=== PATIENT | female | born 1995 | race Asian ===

== ENCOUNTER 2024-12-10 19:58 | Emergency (ER) | payer OTHER ==
--- OUTSIDE RECORDS SUMMARY | 2024-12-10 20:03 | XMS REPORT | Continuity of Care Document ---
Author Name Unknown Address [address] [facility] [address] [place] [address] [facility] Address [address] [facility] [address] [place] [address] Care Team Providers Care Builder Beam Name Role Phone FIDENCIO HUNG Primary Care Physician ИВАН Alfaro Attending Clinician Unavailable FIDENCIO HUNG Attending Clinician Unavailable MARZENA QUIROZ Attending Clinician Unavailable Fidencio Hung NP Attending Clinician [phone], [facility] Attending Clinician Unavailable JOCELYNN NELSON Attending Clinician UnavailJOCELYNN Holland Attending Clinician UnavailJUAN Carranza Attending Clinician Unavailable Juan Dias Attending Clinician [phone] Unknown, Attending Attending Clinician Unavailab villalobos Doctor Unawinstonigned, [place] Attending Clinician Иван Miranda Attending Clinician [phone], [facility] Attending Clinician Unavailable LISSY CYR Attending Clinician LISSY Keita Attending Clinician ИВАН Gamble Admitting Clinician LISSY Saavedra Admitting Clinician Kimber moss Payers Payer Name Policy Type Policy Number Effective Date Expirati on Date Source [facility] [id number] 2024 00:00:00 [facility] [id number] 2023 00:00:00 Problems Condition Name Condition Details Condition Category Status Onset Date Resolution Date Last Treatment Date Treating Clinician Comments Source Irregular menstrual cycle Irregular menstrual cycle Disease Active 11-14 00:00: 00 [facility] Encounter for surveillan ce of contracept bertha pills Encounter for surveillan ce of contracept bertha pills Disease Active 11-14 00:00: 00 [facility] Allergies, Adverse Reactions, Alerts Allergy Name Allergy Type Status Severity Reaction(s) Onset Date Inactive Date Treating Clinician Comments Source NO KNOWN ALLERGIE S Drug Class Active [facility] Social History Social Habit Start Date Stop Date Quantity Comments Source Sexual orientation [facility] History of Social function 2024-09-15 00:00:00 2024-09-15 00:00:00 [facility] Alcoholic beverage intake 2024-09-15 00:00:00 2024-09-15 00:00:00 .57 /d [facility] Tobacco use and exposure 2024-04-11 00:00:00 2024-04-11 00:00:00 Smokeless tobacco non-user [facility] Cigarettes smoked current (pack per day) - Reported 2024-04-11 00:00:00 2024-04-11 00:00:00 [facility] Cigarette pack-years 2024-04-11 00:00:00 2024-04-11 00:00:00 [facility] Alcohol intake 2023-11-29 00:00:00 2023-11-29 00:00:00 .57 /d [facility] Alcohol Comment 2023-08-06 00:00:00 2023-08-06 00:00:00 occasional [facility] History of tobacco use 2021-07-29 00:00:00 2021-07-30 00:00:00 Cigarette Smoker [facility] Sex assigned at 1995 00:00:00 1995 00:00:00 [facility] Smoking Status Start Date Stop Date Source Ex-smoker 2024-04-11 00:00:00 2024-04-11 00:00:00 [facility] Medications Ordered Medication Name Filled Medication Name Start Date Stop Date Current Medication? Ordering Clinician Indication Dosage Frequency Signature (SIG) Comments Components Source acyclovir 400 mg tablet 2-17 00:00: 00 Yes [id number] 400mg Take 1 tablet by mouth in the morning and 1 tablet at noon and 1 tablet in the evening. [facility] valACYclovi r (VALTREX) 1 gram tablet 9-13 00:00: 00 04-19 04:59 :00 No [id number] 1g Take 1 tablet by mouth in the morning and 1 tablet in the evening. Do all this for 7 days. [facility] omeprazole 40 mg capsule - 00:00: 00 Yes [id number] 40mg Take 1 capsule by mouth in the morning. [facility] norethindro ne-e.estrad ioL-iron (LOESTRIN FE 1/20) 1 mg-20 mcg (21)/75 mg (7) tablet 11-04 00:00: 00 Yes [id number] 1{tbl} Take 1 tablet by mouth in the morning. [facility] mupirocin 2 % ointment 10-28 00:00: 00 11-28 00:00 :00 No [id number] Apply to area(s) 3 (three) times daily. [facility] valACYclovi r (VALTREX) 1 gram tablet - 00:00: 00 11-05 04:59 :00 No [id number] 1g Take 1 tablet by mouth in the morning and 1 tablet at noon and 1 tablet in the evening. Do all this for 7 days. [facility] norethindro ne-e.estrad ioL-iron (LOESTRIN FE 1/20) 1 mg-20 mcg (21)/75 mg (7) tablet -18 00:00: 00 11-04 00:00 :00 No [id number] 1{tbl} Take 1 tablet by mouth in the morning. [facility] polyethylen e glycol 3350 (MIRALAX) 17 gram powder -08 00:00: 00 11-28 00:00 :00 No [id number] 1{packe t} Take 1 Packet by mouth as needed for Constipati on (daily as needed for constipati on). [facility] Vital Signs Vital Name Observation Time Observation Value Comments Leon vaughn Systolic blood pressure 2024-09-15 19:10:00 118 mm[Hg] [facility] Diastolic blood pressure 2024-09-15 19:10:00 73 mm[Hg] [facility] Heart rate 2024-09-15 19:10:00 93 /min Unive [facility] Body temperature 2024-09-15 19:10:00 36.83 Joaquina [facility] Body height 2024-09-15 19:10:00 162.6 cm [facility] Body weight 2024-09-15 19:10:00 52.39 kg [facility] BMI 2024-09-15 19:10:00 19.83 kg/m2 [facility] Oxygen saturation in Arterial blood by Pulse oximetry 2024-09-15 19:10:00 100 /min [facility] Systolic blood pressure 2024-04-11 18:03:00 106 mm[Hg] [facility] Diastolic blood pressure 2024-04-11 18:03:00 70 mm[Hg] [facility] Heart rate 2024-04-11 18:03:00 62 /min Unive [facility] Body height 2024-04-11 18:03:00 167.6 cm [facility] Body weight 2024-04-11 18:03:00 61.236 kg [facility] BMI 2024-04-11 18:03:00 21.79 kg/m2 [facility] Oxygen saturation in Arterial blood by Pulse oximetry 2024-04-11 18:03:00 99 /min [facility] Systolic blood pressure 2023-11-29 19:38:00 109 mm[Hg] [facility] Diastolic blood pressure 2023-11-29 19:38:00 71 mm[Hg] [facility] Heart rate 2023-11-29 19:38:00 68 /min Un[facility] Body temperature 2023-11-29 19:38:00 36.39 Joaquina [facility] Body weight 2023-11-29 19:38:00 70.308 kg [facility] BMI 2023-11-29 19:38:00 27.46 kg/m2 [facility] Oxygen saturation in Arterial blood by Pulse oximetry 2023-11-29 19:38:00 98 /min [facility] Systolic blood pressure 2023-11-15 20:19:00 109 mm[Hg] [facility] Diastolic blood pressure 2023-11-15 20:19:00 73 mm[Hg] [facility] Heart rate 2023-11-15 20:19:00 67 /min Un[facility] Respiratory rate 2023-11-15 20:19:00 18 /min [facility] Body height 2023-11-15 20:19:00 160 cm [facility] Body weight 2023-11-15 20:19:00 71.668 kg [facility] BMI 2023-11-15 20:19:00 27.99 kg/m2 [facility] Oxygen saturation in Arterial blood by Pulse oximetry 2023-11-15 20:19:00 100 /min [facility] Systolic blood pressure 2023-11-05 15:41:00 117 mm[Hg] [facility] Diastolic blood pressure 2023-11-05 15:41:00 79 mm[Hg] [facility] Heart rate 2023-11-05 15:41:00 58 /min Un[facility] Body weight 2023-11-05 15:41:00 70.308 kg [facility] BMI 2023-11-05 15:41:00 27.46 kg/m2 [facility] Oxygen saturation in Arterial blood by Pulse oximetry 2023-11-05 15:41:00 98 /min [facility] Systolic blood pressure 2023-10-29 16:13:00 108 mm[Hg] [facility] Diastolic blood pressure 2023-10-29 16:13:00 65 mm[Hg] [facility] Heart rate 2023-10-29 16:13:00 58 /min Un[facility] Body temperature 2023-10-29 16:13:00 36.61 Joaquina [facility] Body height 2023-10-29 16:13:00 160 cm [facility] Body weight 2023-10-29 16:13:00 69.4 kg [facility] BMI 2023-10-29 16:13:00 27.10 kg/m2 [facility] Oxygen saturation in Arterial blood by Pulse oximetry 2023-10-29 16:13:00 99 /min [facility] Systolic blood pressure 2023-08-16 16:10:00 113 mm[Hg] [facility] Diastolic blood pressure 2023-08-16 16:10:00 74 mm[Hg] [facility] Heart rate 2023-08-16 16:10:00 69 /min Un[facility] Body temperature 2023-08-16 16:10:00 36.83 Joaquina [facility] Respiratory rate 2023-08-16 16:10:00 16 /min [facility] Body height 2023-08-16 16:10:00 160 cm [facility] Body weight 2023-08-16 16:10:00 68.221 kg [facility] BMI 2023-08-16 16:10:00 26.64 kg/m2 [facility] Oxygen saturation in Arterial blood by Pulse oximetry 2023-08-16 16:10:00 100 /min [facility] Systolic blood pressure 2023-08-06 20:46:00 109 mm[Hg] [facility] Diastolic blood pressure 2023-08-06 20:46:00 74 mm[Hg] [facility] Heart rate 2023-08-06 20:46:00 62 /min Unive [facility] Respiratory rate 2023-08-06 20:46:00 18 /min [facility] Body height 2023-08-06 20:46:00 160 cm [facility] Body weight 2023-08-06 20:46:00 69.854 kg [facility] BMI 2023-08-06 20:46:00 27.28 kg/m2 [facility] Systolic blood pressure 2024-09-15 19:10:00 118 mm[Hg] [facility] Diastolic blood pressure 2024-09-15 19:10:00 73 mm[Hg] [facility] Heart rate 2024-09-15 19:10:00 93 /min [facility] Body temperature 2024-09-15 19:10:00 36.83 Joaquina [facility] Body height 2024-09-15 19:10:00 162.6 cm [facility] Body weight 2024-09-15 19:10:00 52.39 kg [facility] BMI 2024-09-15 19:10:00 19.83 kg/m2 [facility] Oxygen saturation in Arterial blood by Pulse oximetry 2024-09-15 19:10:00 100 /min [facility] Respiratory rate 2023-11-15 20:19:00 18 /min [facility] Procedures Procedure Date / Time Performed Performing Clinician Source HSV 1 AND 2 GLYCOPROTEIN G IGG 2024-09-15 20:19:00 Fidencio Hung [facility] GALV ONLY - VAGINAL PATHOGENS BY NUCLEIC ACID TESTING 2024-09-15 20:[facility]PLIF[facility] ASSAY 2024-09-15 20:00:00 Fidencio Hung [facility] POCT URINALYSIS 2024-09-15 19:45:00 Fidencio Hung [facility] POCT URINALYSIS 2024-09-15 19:45:00 Fidencio Hung [facility] US ABDOMEN LIMITED 2023-12-17 17:03:30 Иван Hankins [facility] COMP. METABOLIC PANEL ([id number]) 2023-11-29 20:22:00 Иван Hankins [facility] CBC WITH DIFF 2023-11-29 20:22:00 Иван Hankins [facility] URINALYSIS 2023-11-29 20:22:00 Иван Hankins [facility] US PELVIS COMPLETE WITH TRANSVAGINAL 2023-09-17 16:00:22 Lissy Cyr [facility] CONSENT FOR CONTRACEPTION 2023-08-16 06:01:00 Doctor Unassigned, [place] [facility] US PELVIS COMPLETE WITH TRANSVAGINAL 2023-08-14 19:15:00 Cr [facility] CONSENT/REFUSAL FOR DIAGNOSIS AND TREATMENT 2023-08-14 18:41:04 Doctor Unassigned, [place] [facility] URINALYSIS 2023-08-06 21:57:00 Иван Hankins [facility] FREE T4 2023-08-06 21:46:00 Cr Иван [facility] THYROID STIMULATING HORMONE 2023-08-06 21:46:00 Cr [facility] COMP. METABOLIC PANEL ([id number]) 2023-08-06 21:46:00 Conner Hankinsssica [facility] LIPID PANEL ([id number])(TOTAL CHOLESTEROL, TRIGLYCERIDES, HDL) 2023-08-06 21:46:00 Conner Hankinsssica [facility] CBC WITH DIFF 2023-08-06 21:46:00 Иван Hankins [facility] GLYCOSYLATED HEMOGLOBIN (A1C) 2023-08-06 21:46:00 Cr [facility] Encounters Start Date/Time End Date/Time Encounter Type Admission Type Attending [facility] Care Facility Care Department Encounter ID Source 2024-10-13 13:00:00 2024-10-13 13:00:00 Outpatient FIDENCIO MCKEON [facility] [id number] [facility] 2024-09-22 13:30:00 2024-09-22 13:30:00 Outpatient MARZENA REED [facility] [id number] [facility] 2024-09-15 14:30:00 2024-09-15 14:30:00 [employer] Visit Fidencio Hung 2, [facility] 1.2.840.1 [id number] .[id number] [facility] 2024-09-15 13:00:00 2024-09-15 13:59:19 Outpatient R FIDENCIO HUNG [facility] [id number] [facility] 2024-09-15 13:00:00 2024-09-15 13:59:19 Office Visit Fidencio Hung 1.2.840.1 [id number] .[id number] [facility] 2024-09-15 00:00:00 2024-09-15 00:00:00 Travel 1.2.840.1 [id number] 3.104.2.7 .[id number] .8 1.2.840.114 350.1.13.10 4.2.7.3.698 [id number] [facility] 2024-05-27 15:00:00 2024-05-27 15:00:00 Outpatient R OBI-CALLI , JOCELYNN OBI-CALLI , JOCELYNN [facility] [id number] [facility] 2024-04-11 12:20:00 2024-04-11 13:39:29 Outpatient R JUAN MELO [facility] [id number] [facility] 2024-04-11 12:20:00 2024-04-11 12:40:00 Urgent Care Juan Melo Unknown, Attending [facility] 1.0.114 350.1.13.10 4.2.7.2.686 [id number] [facility] 2023-12-10 00:00:00 2024-01-12 18:21:46 Patient Secure Msg Doctor Unassigned, [place] [facility] 1.840.114 350.1.13.10 4.2.7.2.686 [id number] [facility] 2023-12-17 11:21:11 2023-12-17 23:59:00 Outpatient R ИВАН HANKINS [facility] [id number] [facility] 2023-12-17 11:00:00 2023-12-17 23:59:00 Hospital Encounter Иван Hankins 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, [facility] 1.2840.114 350.1.13.10 4.2.7.2.686 [id number] [facility] 2023-11-29 14:30:00 2023-11-29 15:10:54 Outpatient R ИВАН HANKINS [facility] [id number] [facility] 2023-11-29 14:30:00 2023-11-29 15:10:54 Office Visit Иван Hankins [facility] 1.2840.114 350.1.13.10 4.2.7.2.686 [id number] [facility] 2023-11-15 15:30:00 2023-11-15 15:30:00 Outpatient R LISSY ROGRE MARISOL [facility] [id number] [facility] 2023-11-15 15:30:00 2023-11-15 15:30:00 Office Visit Lissy Roger [facility] 1.2840.114 350.1.13.10 4.2.7.2.686 [id number] [facility] 2023-11-05 11:00:00 2023-11-05 11:00:00 Office Visit Иван Hankins [facility] 1.84.114 350.1.13.10 4.2.7.2.686 [id number] [facility] 2023-11-05 11:00:00 2023-11-05 10:54:30 Outpatient R ИВАН HANKINS [facility] [id number] [facility] 2023-10-29 11:30:00 2023-10-29 11:30:00 Office Visit Иван Hankins [facility] 1.84.114 350.1.13.10 4.2.7.2.686 [id number] [facility] 2023-10-29 11:30:00 2023-10-29 11:25:35 Outpatient R ИВАН HANKINS [facility] [id number] [facility] 2023-09-17 09:01:48 2023-09-17 23:59:00 Outpatient R CESPEDES-NORA S, LISSY CESPEDES-NORA S, LISSY [facility] [id number] [facility] 2023-09-17 09:01:48 2023-09-17 23:59:00 Hospital Encounter Cespedes-Nora s, Lissy [facility] 1.84.114 350.1.13.10 4.2.7.2.686 [id number] [facility] 2023-08-16 10:00:00 2023-08-16 11:06:26 Outpatient R CESPEDES-NORA S, LISSY CESPEDES-NORA S, LISSY [facility] [id number] [facility] 2023-08-16 10:00:00 2023-08-16 11:06:26 Office Visit Cespedes-Nora s Lissy [facility] 1.84.114 350.1.13.10 4.2.7.2.686 [id number] [facility] 2023-08-16 00:00:00 2023-08-16 00:00:00 Orders Only Doctor Unassigned, [place] [facility] 1.2.840.114 350.1.13.10 4.2.7.2.686 [id number] [facility] 2023-08-14 12:41:53 2023-08-14 23:59:00 [facility] [id number] 2023-08-14 12:41:53 2023-08-14 23:59:00 Hospital [facility] 1.2840.114 350.1.13.10 4.2.7.2.686 [id number] [facility] 2023-08-14 00:00:00 2023-08-14 00:00:00 Orders Only Doctor Unassigned, [place] [facility] 1.2840.114 350.1.13.10 4.2.7.2.686 [id number] [facility] 2023-08-06 15:30:00 2023-08-06 15:54:35 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 BUILDING 1.2840.114 350.1.13.10 4.2.7.2.686 [id number] [facility] 2023-08-06 14:30:00 2023-08-06 15:18:23 [facility] [id number] 2023-08-06 14:30:00 2023-08-06 15:18:[address] [facility] BUILDING 1.2840.114 350.1.13.10 4.2.7.2.686 [id number] [facility] Results Test Description Test Time Test Comments Results Result Co mments Source [facility] Specific [id number] 19:46:00* Test Item Value Reference Range Interpretation Comme nts POCT U SP GRAV (test code = 3255) 1.015 mg/dl 1.005-1.025 POCT PH U (test code = 3254) 5 mg/dl 5-8 POCT U LEUK EST (test code = 3263) Negative Negative - Negative POCT U NIT (test code = 3262) Negative Negative - Negati ve POCT U PROT (test code = 3259) Negative Negative - Negative POCT U GLU (test code = 3256) Normal Negative - Negati ve POCT U KETONE (test code = 3258) Negative Negative - Negative POCT U UROBILI (test code = 3260) Normal 0.2-1 POCT U BILI (test code = 3261) Negative Negative - Negative POCT U BLD (test code = 3257) Negative Negative - Negati ve POCT U COLOR (test code = 3266) POCT U APPEAR (test code = 3267) [facility] [id number] 19:47:53ORDERING PHYSICIAN: ИВАН HANKINS LIMITED RIGHT UPPER QUADRANT ABDOMEN ULTRASOUND. DATE: 42:47 PM CLINICAL INDICATIONS: ?Right upper quadrant abdominal pain TECHNIQUE: ?Multiple transverse and longitudinal sonographic images of theabdomen were obtained, focusing on the right upper quadrant. Permanentimages were recorded. COMPARISON: None. FINDINGS: ?The liver has a normal contour and echotexture withoutintrahepatic mass, biliary ductal dilation or contour nodularity. ? The gallbladderis collapsed without evidence for cholelithiasis or acutecholecystitis. The proximal extrahepatic common bile duct measures 2 mm indiameter. ?The gallbladder wall measures 1 mm in diameter. No sonogra phicMurphy's sign was obtained. The visualized pancreas and abdominal aorta demonstrate no abnormality.[facility]. Met[facility] Panel ([id number])2023-11-29 23:21:14* Test Item Value Reference Range Interpretation Comme nts NA (test code = 0141923555) 137 mmol/L 135-145 K (test code = 1962049459) 4.1 mmol/L 3.5-5.0 CL (test code = 1963608070) 103 mmol/L 98-108 CO2 TOTAL (test code = 8197750369) 28 mmol/L 23-31 AGAP (test code = 8991265256) 6 2-16 BUN (test code = 1709007586) 14 mg/dL 7-23 GLUCOSE (test code = 5719835352) 90 mg/dL 70-110 CREATININE (test code = 2160-0) 0.74 mg/dL 0.50-1.04 TOTAL BILI (test code = 5752824360) 0.5 mg/dL 0.1-1.1 CALCIUM (test code = 7350117051) 9.4 mg/dL 8.6-10.6 T PROTEIN (test code = 4518597165) 7.7 g/dL 6.3-8.2 ALBUMIN (test code = 1914812829) 4.6 g/dL 3.5-5.0 ALK PHOS (test code = 2098375538) 41 U/L 34-122 ALTv (test code = 1742-6) 13 U/L 5-35 AST(SGOT) (test code = 4851109009) 25 U/L 13-40 eGFR (test code = 61711-5) 112.5 mL/min/1.73m2 CKD-EPI eGFR (20 21). Assuming creatinine has been stable day-to-day for at least three months, the eGFR indicates Category G1 (>= 90 mL/min/1.73 m2) [facility]. Metabolic Panel ([id number])2023-11-29 23:21:14* Test Item Value Reference Range Interpretation Comme nts NA (test code = 9853858491) 137 mmol/L 135-145 K (test code = 7795583131) 4.1 mmol/L 3.5-5.0 CL (test code = 3797467971) 103 mmol/L 98-108 CO2 TOTAL (test code = 4051999509) 28 mmol/L 23-31 AGAP (test code = 0889061764) 6 2-16 BUN (test code = 0102337717) 14 mg/dL 7-23 GLUCOSE (test code = 1920158735) 90 mg/dL 70-110 CREATININE (test code = 2160-0) 0.74 mg/dL 0.50-1.04 TOTAL BILI (test code = 8975452525) 0.5 mg/dL 0.1-1.1 CALCIUM (test code = 9427827501) 9.4 mg/dL 8.6-10.6 T PROTEIN (test code = 4006156146) 7.7 g/dL 6.3-8.2 ALBUMIN (test code = 6132489252) 4.6 g/dL 3.5-5.0 ALK PHOS (test code = 5890035393) 41 U/L 34-122 ALTv (test code = 1742-6) 13 U/L 5-35 AST(SGOT) (test code = 1442112528) 25 U/L 13-40 eGFR (test code = 79165-4) 112.5 mL/min/1.73m2 CKD-EPI eGFR (20 21). Assuming creatinine has been stable day-to-day for at least three months, the eGFR indicates Category G1 (>= 90 mL/min/1.73 m2) [facility] with [id number] 21:39:35* Test Item Value Reference Range Interpretation Comme nts WBC (test code = 6690-2) 9.72 4.30-11.10 RBC (test code = 789-8) 4.48 3.93-5.25 HGB (test code = 718-7) 13.6 g/dL 11.6-15.0 HCT (test code = 4544-3) 41.9 % 35.7-45.2 MCV (test code = 787-2) 93.5 fL 80.6-95.5 MCH (test code = 785-6) 30.4 pg 25.9-32.8 MCHC (test code = 786-4) 32.5 g/dL 31.6-35.1 RDW-SD (test code = 35937-8) 42.9 fL 39.0-49.9 RDW-CV (test code = 788-0) 12.4 % 12.0-15.5 PLT (test code = 777-3) 284 166-358 MPV (test code = 15102-2) 10.9 fL 9.5-12.9 NRBC/100 WBC (test code = 9965901842) 0.0 0.0-10.0 NRBC x10^3 (test code = 5154428589) See_Comment [Automated me ssage] The system which generated this result transmitted reference range: 10*3/?L. The reference range was not used to interpret this result as normal/abnormal. GRAN MAT (NEUT) % (test code = 770-8) 68.3 % IMM GRAN % (test code = 3396364612) 0.20 % LYMPH % (test code = 736-9) 22.5 % MONO % (test code = 5905-5) 6.7 % EOS % (test code = 713-8) 1.9 % BASO % (test code = 706-2) 0.4 % GRAN MAT x10^3(ANC) (test code = 3126932160) 6.64 10*3/uL 1.88-7.09 IMM GRAN x10^3 (test code = 7561767420) 0.00-0.06 LYMPH x10^3 (test code = 731-0) 2.19 10*3/uL 1.32-3.29 MONO x10^3 (test code = 742-7) 0.65 10*3/uL 0.33-0.92 EOS x10^3 (test code = 711-2) 0.18 10*3/uL 0.03-0.39 BASO x10^3 (test code = 704-7) 0.04 10*3/uL 0.01-0.07 [facility] with [id number] 21:39:35* Test Item Value Reference Range Interpretation Comme nts WBC (test code = 6690-2) 9.72 4.30-11.10 RBC (test code = 789-8) 4.48 3.93-5.25 HGB (test code = 718-7) 13.6 g/dL 11.6-15.0 HCT (test code = 4544-3) 41.9 % 35.7-45.2 MCV (test code = 787-2) 93.5 fL 80.6-95.5 MCH (test code = 785-6) 30.4 pg 25.9-32.8 MCHC (test code = 786-4) 32.5 g/dL 31.6-35.1 RDW-SD (test code = 37228-5) 42.9 fL 39.0-49.9 RDW-CV (test code = 788-0) 12.4 % 12.0-15.5 PLT (test code = 777-3) 284 166-358 MPV (test code = 96752-9) 10.9 fL 9.5-12.9 NRBC/100 WBC (test code = 1842873412) 0.0 0.0-10.0 NRBC x10^3 (test code = 3304283344) See_Comment [Automated me ssage] The system which generated this result transmitted reference range: 10*3/?L. The reference range was not used to interpret this result as normal/abnormal. GRAN MAT (NEUT) % (test code = 770-8) 68.3 % IMM GRAN % (test code = 7106066889) 0.20 % LYMPH % (test code = 736-9) 22.5 % MONO % (test code = 5905-5) 6.7 % EOS % (test code = 713-8) 1.9 % BASO % (test code = 706-2) 0.4 % GRAN MAT x10^3(ANC) (test code = 6107384620) 6.64 10*3/uL 1.88-7.09 IMM GRAN x10^3 (test code = 1770963677) 0.00-0.06 LYMPH x10^3 (test code = 731-0) 2.19 10*3/uL 1.32-3.29 MONO x10^3 (test code = 742-7) 0.65 10*3/uL 0.33-0.92 EOS x10^3 (test code = 711-2) 0.18 10*3/uL 0.03-0.39 BASO x10^3 (test code = 704-7) 0.04 10*3/uL 0.01-0.07 [facility] PELVIS COMPLETE WITH [id number] 17:04:26EXAM: US PELVIS COMPLETE WITH TRANSVAGINAL HISTORY: 27 years-old Female with: right ovarian cyst . LMP = 09/09/2023 TECHNIQUE: Transabdominal and transvaginal ultrasound imaging and colorDoppler evaluation of the pelvis was performed. [facility] Fall[facility] images wereobtained for the record. COMPARISON: ul trasound dated 08/14/2023 FINDINGS: Uterus: The uterus measures 9.5 x 4.3 x 6.5 cm. The myometrium appears homogenous.No focal lesion is detected. The endometrium is normal in appearance andthe thickness measures 0.9 cm. The cervix is unremarkable. Right Adnexa:Ovary: The right ovary measures 3.9 x 2.9 x 1.8 cm with a volume of 10.8ml. The right ovary is unremarkable. Previously seen cyst has resolved. Adominant follicle is visualized. Left Adnexa:Ovary: The left ovary measures 3.7 x 3.1 x 2.4 cm with a volume of 13.8 ml.The left ovary is unremarkable. A dominant follicle is visualized. Cul-de-sac: Small amounts of free fluid, likely physiological, are present.[facility] US PELVIS COMPLETE WITH [id number] 20:07:49EXAM: US PELVIS COMPLETE WITH TRANSVAGINAL HISTORY: 27 years-old Female; heavy menstruation . LMP = 07/13/2023 TECHNIQUE: Transabdominal and transvaginal ultrasound imaging and colorDoppler evaluation of the pelvis was performed. [place] Faller images wereobtained for the record. COMPARISON: None FINDINGS: Uterus: The uterus is normal in size and measures 9.7 x 4 x 6.5 cm. The myometriumappears homogenous. No focal lesion is detected. The endometrium is normalin appearance and the thickness measures 0.6 cm. The cervix isunremarkable. Right Adnexa:Ovary: The right ovary measures 5.6 x 4.2 x 5.7 cm, with a volume of 71 ml.A large anechoic lesion is noted in the right ovary, measuring 5.1 x 2.8 x5 cm. Left Adnexa:Ovary: The left ovary measures 2.5 x 1.3 x 2.6 cm, with a volume of 4.8 ml.Multiple ovarian follicles are noted Cul-de-sac: No free fluid is present. [facility] Notes Date/Time Note Provider Source 2024-09-15 14:30:00 Images from the original note were not included. Venipuncture collection performed by clean technique on the left anticubitus. Total of 1 attempts were made. Slight pressure and a bandage/dressing were applied to the site(s). The patient experienced no complications. The following specimens were processed according to instructions and sent to [facility] laboratories per lab order on 09/15/2024 : LT BLUE SST 1 RED LAV PPT DK GREEN (LiHep) DK GREEN (SodH) TAMAYO DK BLUE (K2) DK BLUE (S) ACD Blood Culture NIPT/NTD EMAN HELPER [facility] 2023-11-29 15:15:00 Images from the original note were not included. Venipuncture collection performed by clean technique on the left anticubitus. Total of 1 attempts were made. Slight pressure and a bandage/dressing were applied to the site(s). The patient experienced no complications. The following specimens were processed according to instructions and sent to [facility] laboratories per lab order on 11/29/2023: LT BLUE SST 1 RED LAV 1 PPT DK GREEN (LiHep) DK GREEN (SodH) TAMAYO DK BLUE (K2) DK BLUE (S) ACD Blood Culture NIPT/NTD Patient has been identified by and name and was provided with cup, antiseptic towelette, and clean catch instructions. 1 urine specimen(s) sent. Unpreserved 1 Urine Culture Aptima tube Other urine [facility] 2023-09-17 09:15:00 Pelvic US show normal uterus and resolved ovarian cyst. [facility] 2023-08-14 13:00:00 IMPRESSION Unremarkable ultrasound of the uterus. A 5 cm right simple ovarian cyst. Recommend follow up with OBGYN [facility] 2023-08-06 15:30:00 Images from the original note were not included. Venipuncture collection performed by clean technique on the left anticubitus. Total of 1 attempts were made. Slight pressure and a bandage/dressing were applied to the site(s). The patient experienced no complications. The following specimens were processed according to instructions and sent to [facility] laboratories per lab order on 08/06/2023 : LT BLUE SST 1 RED LAV 2 PPT DK GREEN (LiHep) DK GREEN (SodH) TAMAYO DK BLUE (K2) DK BLUE (S) ACD Blood Culture NIPT/NTD Patient has been identified by and was provided with cup, antiseptic towelette, and clean catch instructions. 1 urine specimen(s) sent. Unpreserved 1 Urine Culture Aptima tube Other urine [facility]
--- NOTE | 2024-12-10 22:39 | RAD REPORT ---
EXAMINATION: US Abdomen Exam Limited CLINICAL HISTORY: [facility] MAIN N ABD PAIN Bed Name: [facility] COMPARISON: None. TECHNIQUE: Limited upper abdominal grayscale and color flow sonographic images. FINDINGS: Gallbladder: Suboptimally distended limiting evaluation. No pericholecystic fluid. No wall thickening . No echogenic calculi. Negative sonographic Padron sign. Bile ducts: No intrahepatic or extrahepatic biliary dilatation. Common bile duct measures 1 mm. Liver: Visualized portions of the liver demonstrate normal echogenicity with no suspicious findings. Fluid: No ascites. IMPRESSION: No abnormalities on right upper quadrant ultrasound. Gallbladder is suboptimally distended which limi ts evaluation.
[2024-12-10 23:35] LABS: Absolute Eosinophils 0.2 K/uL (0-0.5); Absolute Lymphocytes (CBC) 2.7 K/uL (0.7-4.9); Absolute Monocytes 0.6 K/uL (0.1-1.3); Absolute Neutrophil 2.7 K/uL (1.8-8.0); Basophils % 0.5 % (0-1.3); Eosinophils % 3.4 % (0-4.4); Hematocrit 39.5 % (36.0-45.0); Hemoglobin 13.4 g/dL (12.0-15.0); Lymphocytes % 43.5 % (15.3-44.8); MCH 29.8 pg (27.0-35.0); MCHC 33.9 g/dL (32.0-36.0); MCV 87.8 fL (80-100); MPV 8.4 fL (7.6-11.3); Monocytes % 9.2 % (3.3-12.3); Neutrophils % 43.4 % (41.7-73.7); Nucleated Red Blood Cells % 0.2 % (0-0); Platelets 280 thou/uL (152-406); RBC Red Blood Cell Count 4.49 M/uL (3.86-4.86)
[2024-12-10 23:38] LABS: Albumin 4.2 g/dL (3.4-5.0); Albumin/Globulin Ratio 1.1 (1.1-1.8); Anion Gap 7.6 mEq/L (5.0-15.0); Bilirubin Total 0.2 mg/dL (0.2-1.0); Globulin 3.9 g/dL (2.3-3.5); Potassium 3.6 mEq/L (3.5-5.1); Protein, Total 8.1 g/dL (6.4-8.2)
[2024-12-11 00:48] LABS: Specific Gravity 1.007 (1.005-1.030); Specific Gravity 1.008 (1.005-1.030); Urine Bilirubin NEGATIVE (Negative); Urine Blood Negative (Negative); Urine Clarity Clear (Clear); Urine Color Colorless (Yellow); Urine Glucose NEGATIVE (Negative); Urine Ketones NEGATIVE (Negative); Urine Microscopic Reflex YN NO UMIC; Urine Nitrite NEGATIVE (Negative); Urine Protein NEGATIVE (Negative); Urine Urobilinogen Normal (Normal); Urine pH 7.5 (5.0-7.0)
--- NOTE | 2024-12-11 01:44 | RAD REPORT ---
EXAM: CT Abdomen and Pelvis Without Intravenous Contrast CLINICAL HISTORY: ABD PAIN TECHNIQUE: Axial computed tomography images of the abdomen and pelvis without intravenous contrast. Sagittal a nd coronal reformatted images were created and reviewed. This CT exam was performed using one or more of the following dose reduction techniques: automated exposure control, adjustment of the mA a nd/or kV according to patient size, and/or use of iterative reconstruction technique. COMPARISON: No relevant prior studies available. FINDINGS: Lung bases: Unremarkable. No mass. No consolidation. ABDOMEN: Liver: Unremarkable. Gallbladder and bile ducts: Contracted gallbladder. No calcified stones. No ductal dilation. Pancreas: Unremarkable. No ductal dilation. Spleen: Unremarkable. No splenomegaly. Adrenals: Unremarkable. No mass. Kidneys and ureters: Unremarkable. No obstructing stones. No hydronephrosis. Stomach and bowel: Nondilated fluid-filled small bowel loops. Moderate stool. No bowel obstruction. No appreciable mucosal thickening. PELVIS: Appendix: Normal caliber appendix. No findings to suggest acute appendicitis. Bladder: Unremarkable. No stones. Reproductive: 3 cm left ovarian cyst. The uterus and right ovary are unremarkable as visualized. ABDOMEN and PELVIS: Intraperitoneal space: Unremarkable. No free air. No significant fluid collection. Bones/joints: No acute fracture. No dislocation. Soft tissues: Unremarkable. Vasculature: Unremarkable. No abdominal aortic aneurysm. Lymph nodes: Unremarkable. No enlarged lymph nodes. IMPRESSION: 1. Nonspecific small bowel fluid. Moderate stool. No bowel obstruction. No appreciable mucosal thic kening. 2. A 3 cm left ovarian cyst. No follow-up imaging is recommended. Reference: JACR 2019;17(2):14 3-254 3. Other findings as above. Electronically signed by: Angelito Pearl MD 12/11/2024 01:39 AM T Due to temporary technical issues with the [employer] reporting system, reports are being michelle d by the in-house radiologist without review as a courtesy to ensure prompt reporting the interpreting radiologist is fully responsible for the content of the report. Transcribed Date/Time: 12/11/2024 1:44 AM
--- NOTE | 2024-12-11 01:45 | ER ---
Nurse's Notes [facility] Name: Jack Spain Age: 29 yrs Sex: Female : 1995 Arrival Date: 12/10/2024 Time: 19:58 Bed 17 Private MD: Diagnosis: Abdominal pain Presentation: 12/10 20:33 Chief complaint: Patient states: RUQ pain 6/10 that started today about 1 pm after me1 eating. Denies n/v. Developed a headache after abd pain today w/associated dizziness. Took tylenol and headache improved but still feels dizzy. Also c/o numbness down bilateral arms to hands that is worse when lying down. States she has had this abdominal pain in the past that is worse after eating. Coronavirus screen: Vaccine status: Patient reports receiving the 2nd dose of the covid vaccine. Ebola Screen: No symptoms or risks identified at this time. Initial Sepsis Screen: Does the patient meet any 2 criteria? No. Patient's initial sepsis screen is negative. Does the patient have a suspected source of infection? No. Patient's initial sepsis screen is negative. Risk Assessment: Do you want to hurt yourself or someone else? Patient reports no desire to harm self or others. Onset of symptoms was December 10, 2024 at 13:00. 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 - Infectious Disease History:: Denies. - Social history:: Smoking status: Patient denies any tobacco usage or history of. Screenin/15 00:13 [facility] ED Fall Risk Assessment (Adult) History of falling in the last 3 months, jj7 including since admission No falls in past 3 months (0 pts) Confusion or Disorientation No (0 pts) Intoxicated or Sedated No (0 pts) Impaired Gait No (0 pts) Mobility Assist Device Used No (0 pt) Altered Elimination No (0 pt) Score/Fall Risk Level 0 - 2 = Low Risk Oriented to surroundings, Maintained a safe environment, Educated pt \T\ family on fall prevention, incl call for assistance when getting out of bed, Assessed \T\ reinforced patient's understanding of fall precautions. Abuse screen: Denies threats or abuse. Nutritional screening: No deficits noted. Tuberculosis screening: No symptoms or risk factors identified. Assessment: 00:13 Reassessment: ASSUMED CARE OF PT. PT SITTING IN BED. MO DISTRESS NOTED. CALL HARO IN jj7 REACH. FAMILY AT BEDSIDE. General: Appears in no apparent distress. comfortable, Behavior is calm, cooperative, appropriate for age. Pain: Complains of pain in epigastric area. GI: Bowel sounds present X 4 quads. Abd is soft and non tender X 4 quads. Reports epigastric pain. 01:28 Reassessment: Patient and/or family updated on plan of care and expected duration. Pain jj7 level reassessed. Patient is alert, oriented x 3, equal unlabored respirations, skin warm/dry/pink. Vital Signs: 12/10 20:33 BP 125 / 82; Pulse 81; Resp 16; Temp 98.5; Pulse Ox 100% ; Weight 55 kg; Height 5 ft. 4 me1 in. ; Pain 6/10; 12/11 00:13 BP 124 / 82; Pulse 82; Resp 17; Pulse Ox 100% ; jj7 01:15 BP 111 / 83; Pulse 72; Resp 20; Pulse Ox 19% ; jj7 01:52 BP 114 / 75; Pulse 70; Resp 20; Temp 97.8; Pulse Ox 99% ; jj7 12/10 20:33 Body Mass Index 20.81 (55.00 kg, 162.56 cm) me1 12/10 20:33 Pain Scale: Adult me1 ED Course: 12/10 20:12 Patient arrived in ED. gm2 20:13 Buffy Ingram MD is Attending Physician. sp3 20:37 Triage completed. me1 20:37 Arm band placed on Patient placed in waiting room. me1 21:29 Radiology exam delayed due to test not completed at this time. ls3 21:53 Abdomen Limited US In Process Unspecified. EDMS 22:56 CBC with Diff Sent. vk 22:56 CMP Sent. vk 22:56 Lipase Sent. vk 22:56 Missed attempt(s): 22 gauge in right antecubital area. vk 22:56 Initial lab(s) drawn, by me, sent to lab. vk 23:19 Inserted saline lock: 22 gauge in right forearm, using aseptic technique. Blood lg3 collected. Flushed with 10 mL NS. 23:52 Abdomen In Process Unspecified. EDID 12/11 00:13 Missy Montanez, RN is Primary Nurse. jj7 00:13 Patient has correct armband on for positive identification. Bed in low position. Call jj7 light in reach. Adult w/ patient. Provided Education on: USE OF CALL HARO. Client placed on continuous cardiac and pulse oximetry monitoring. NIBP monitoring applied. Pulse ox on. NIBP on. 01:52 No provider procedures requiring assistance completed. IV discontinued, intact, jj7 bleeding controlled, No redness/swelling at site. Pressure dressing applied. Administered Medications: No medications were administered Medication: 00:13 VIS not applicable for this client. jj7 Outcome: 01:45 Discharge ordered by . maria e 01:52 Discharged to home ambulatory, with significant other, jj7 01:52 Condition: good 01:52 Discharge instructions given to patient, Instructed on discharge instructions, follow up and referral plans. medication usage, Demonstrated understanding of instructions, follow-up care, medications, Prescriptions given X 2, 01:54 Patient left the ED. jj7 Signatures: Dispatcher [employer] [facility] Micheal Jarrell ls3 Michaelle Hardwick, RN RN lg3 Buffy Ingram MD MD sp3 Missy Montanez RN RN jj7 Merlene Zurita RN RN me1 Sandra Tariq 2 Hina Jarrett Corrections: (The following items were deleted from the chart) 12/10 20:37 20:33 Chief complaint: Patient states: RUQ pain 6/10 that started today about 1 pm me1 after eating. Denies n/v. Developed a headache after abd pain today w/associated dizziness. Took tylenol and headache improved but still feels dizzy. Also c/o numbness down bilateral arms to hands that is worse when lying down. me1
--- NOTE | 2024-12-11 01:45 | EDPHYS ---
Physician Documentation [facility] Name: Jack Spain Age: 29 yrs Sex: Female : 1995 Arrival Date: 12/10/2024 Time: 19:58 Bed 17 Private MD: ED Physician Buffy Ingram HPI: 12/10 23:25 This 29 yrs old Female presents to ER via Ambulatory with complaints of Abdominal sp3 Pain, Numbness Of Hand. 23:25 29-year-old female with no known past medical history presents with episodic epigastric sp3 pain radiating both to the right and to the left at different times over the last 2 to 3 days. Patient has had no past surgical history and is on no medications. She denies any back pain, chest pain, shortness of breath, symptoms, VP CLINICAL symptoms, , drug use, substance use, vomiting, diarrhea, melena, known sick contacts, travel history, prolonged immobilization, or any other signs or symptoms on ROS at this time. Patient also said she has had episodic left hand tingling however that has subsided.. 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 - Infectious Disease History:: Denies. - Social history:: Smoking status: Patient denies any tobacco usage or history of. ROS: 23:28 Constitutional: Negative for fever, chills, and weight loss, Eyes: Negative for injury, sp3 pain, redness, and discharge, Neck: Negative for injury, pain, and swelling, Cardiovascular: Negative for chest pain, palpitations, and edema, Respiratory: Negative for shortness of breath, cough, wheezing, and pleuritic chest pain, Back: Negative for injury and pain, : Negative for injury, bleeding, discharge, and swelling, MS/Extremity: Negative for injury and deformity, Skin: Negative for injury, rash, and discoloration, Neuro: Negative for headache, weakness, numbness, tingling, and seizure, 23:28 All other systems are negative, Exam: 23:29 Constitutional: This is a well developed, well nourished patient who is awake, alert, sp3 and in no acute distress. Head/Face: Normocephalic, atraumatic. Eyes: Pupils equal round and reactive to light, extra-ocular motions intact. Lids and lashes normal. Conjunctiva and sclera are non-icteric and not injected. Cornea within normal limits. Periorbital areas with no swelling, redness, or edema. Neck: Trachea midline, no thyromegaly or masses palpated, and no cervical lymphadenopathy. Supple, full range of motion without nuchal rigidity, or vertebral point tenderness. No Meningismus. Chest/axilla: Normal chest wall appearance and motion. Nontender with no deformity. No lesions are appreciated. Cardiovascular: Regular rate and rhythm with a normal S1 and S2. No gallops, murmurs, or rubs. Normal PMI, no JVD. No pulse deficits. Respiratory: Lungs have equal breath sounds bilaterally, clear to auscultation and percussion. No rales, rhonchi or wheezes noted. No increased work of breathing, no retractions or nasal flaring. Back: No spinal tenderness. No costovertebral tenderness. Full range of motion. Skin: Warm, dry with normal turgor. Normal color with no rashes, no lesions, and no evidence of cellulitis. MS/ Extremity: Pulses equal, no cyanosis. Neurovascular intact. Full, normal range of motion. Neuro: Awake and alert, GCS 15, oriented to person, place, time, and situation. Cranial nerves II-XII grossly intact. Motor strength 5/5 in all extremities. Sensory grossly intact. Cerebellar exam normal. Normal gait. Psych: Awake, alert, with orientation to person, place and time. Behavior, mood, and affect are within normal limits. 23:29 Abdomen/GI: Mild epigastric pain to palpation without peritoneal signs, rebound or guarding. Nonsurgical abdomen., Vital Signs: 20:33 BP 125 / 82; Pulse 81; Resp 16; Temp 98.5; Pulse Ox 100% ; Weight 55 kg; Height 5 ft. 4 me1 in. ; Pain 6/10; 12/11 00:13 BP 124 / 82; Pulse 82; Resp 17; Pulse Ox 100% ; jj7 01:15 BP 111 / 83; Pulse 72; Resp 20; Pulse Ox 19% ; jj7 01:52 BP 114 / 75; Pulse 70; Resp 20; Temp 97.8; Pulse Ox 99% ; jj7 12/10 20:33 Body Mass Index 20.81 (55.00 kg, 162.56 cm) mt1 12/10 20:33 Pain Scale: Adult me1 MDM: 12/10 20:41 Medical Screening Exam initiated sp3 23:29 Data reviewed: vital signs, nurses notes, lab test result(s), radiologic studies. ED sp3 course: 29-year-old female with epigastric abdominal pain. Differential diagnosis viral illness, gastritis, biliary pathology, colitis, musculoskeletal pain, GERD, among others. I am not highly suspicious of acute coronary syndrome, sepsis, shock, PE, TAD, UTI, kidney stone, or any other critical process. Workup will include CT scan of the abdomen pelvis, ultrasound right upper quadrant and general labs. Disposition pending workup and patient course.. 12/11 01:44 ED course: Full workup negative. Will discharge patient home on tramadol and sp3 ondansetron.. 12/10 20:41 Order name: CBC with Diff; Complete Time: 00:41 sp3 12/10 20:41 Order name: CMP; Complete Time: 00:41 sp3 12/10 20:41 Order name: Lipase; Complete Time: 00:41 sp3 12/10 22:04 Order name: UA Rfx Constantine Cult if indicated; Complete Time: 00:48 sp3 12/10 22:04 Order name: Test, Urine; Complete Time: 00:48 sp3 12/10 20:41 Order name: Abdomen Limited US; Complete Time: 22:43 sp3 12/10 23:46 Order name: Abdomen EDMS 12/10 20:41 Order name: IV Saline Lock; Complete Time: 23:18 sp3 12/10 20:41 Order name: Labs collected and sent; Complete Time: 23:18 sp3 Administered Medications: No medications were administered Disposition Summary: 12/11/24 01:45 Discharge Ordered Notes: Location: Home sp3 Condition: Stable sp3 Diagnosis - Abdominal pain sp3 Followup: sp3 - With: Private Physician - When: Upon discharge from the Emergency Department - Reason: Continuance of care Discharge Instructions: - Discharge Summary Sheet sp3 - Abdominal Pain, Adult sp3 Forms: - Medication Reconciliation Form sp3 - Antibiotic Education sp3 - Prescription Opioid Use sp3 - Patient Portal Instructions sp3 - Leadership Thank You Letter sp3 Prescriptions: - Tramadol 50 mg Oral Tablet - take 1 tablet ORAL route every 8 hours as needed; 12 tablet; Refills: 0, sp3 Product Selection Permitted - ondansetron 8 mg Oral Tablet,disintegrating - take 1 tablet ORAL route every 12 hours; 20 tablet; Refills: 0, Product sp3 Selection Permitted Signatures: Dispatcher [employer] EDBuffy Dumont MD MD sp3 Merlene Zurita, RN RN me1 Corrections: (The following items were deleted from the chart) 12/10 20:41 20:41 CBC+H.LAB.BRZ ordered. EDMS EDMS 20:41 20:41 COMPREHENSIVE METABOLIC PANEL+C.LAB.BRZ ordered. EDMS EDMS 20:41 20:41 LIPASE+C.LAB.BRZ ordered. EDMS EDMS 20:41 20:41 Abdomen Limited+US.RAD.BRZ ordered. EDMS EDMS 20:41 20:41 Abdomen Pelvis W Con+CT.RAD.BRZ ordered. EDMS EDMS 23:29 23:25 29-year-old female with no known past medical history presents with episodic sp3 epigastric pain radiating both to the right and to the left at different times over the last 2 to 3 days. Patient has had no past surgical history and is on no medications. She denies any back pain, chest pain, shortness of breath, symptoms, VP CLINICAL symptoms, , drug use, substance use, vomiting, diarrhea, melena, known sick contacts, travel history, prolonged immobilization, or any other signs or symptoms on ROS at this time.. sp3
[2024-12-11 02:58] VITALS: BP 114/75; TEMP 97.8; O2SAT 99
== END 2024-12-11 01:54 | disposition home or self-care (01) ==
LOC: ER 19:58
DX: R10.13 Epigastric pain (principal)
CPT/HCPCS: 36415; 74176; 76705; 80053; 81003; 81025; 83690; 85025; 99284